=== PATIENT | male | born 1970 | race Caucasian/White ===

== ENCOUNTER 2020-12-15 08:20 | Emergency (ER) | payer OTHER ==
[~2020-12-15] VITALS: Ht 175.3 cm; Wt 77.9 kg
[~2020-12-15 08:20] MED LIST: LORA0.5T21 PO
[2020-12-15 08:43] VITALS: BP 130/84
--- NOTE | 2020-12-15 08:58 | PHYS DOC ---
Past History Additional Past Medical Histor: chronic back pain Past Surgical History: Other Additional Past Surgical Histo: back Alcohol Use: None Adult General Chief Complaint Chief Complaint: LACERATION/AVULSION [facility] HPI Patient is a 50-year-old male presenting for laceration. Patient reports cutting household items with a knife and accidentally cutting left hand that was holding object he was trying to cut. Patient immediately placed a towel and applied pressure to said finger and was transported to our ER for evaluation. No other major changes in health, no changes in motor or sensory or neuro function, no blood thinner use, last tetanus is unknown Review of Systems Review of Systems Fourteen body systems of review of systems have been reviewed. See HPI for pertinent positives and negative responses, other aleman all other systems are negative, non-pertinent or non-contributory Allergies Allergies Allergies Coded Allergies Type Severity Reaction Last Updated Verified No Known Drug Allergies 10/01/14 No Physical Exam Physical Exam Constitutional: Well developed, well nourished, no acute distress, non-toxic appearance. HENT: Normocephalic, atraumatic, bilateral external ears normal, oropharynx moist, no oral exudates, nose normal. Eyes: PERRLA, EOMI, conjunctiva normal, no discharge. Neck: Normal range of motion, no tenderness, supple, no stridor. Cardiovascular: Heart rate regular, sinus rhythm, no murmurs rubs or gallops Lungs & Thorax: Bilateral breath sounds clear to auscultation Abdomen: Bowel sounds normal, soft, no tenderness, no masses, no pulsatile masses. Nonsurgical abdomen, no peritoneal signs Skin: Warm, dry, no erythema, no rash. Well approximated 4 mm laceration present to distal pad of left second index finger without nailbed involvement or underlying muscle/tendon involvement, no foreign bodies Back: No tenderness, no CVA tenderness. Extremities: No tenderness, no cyanosis, no clubbing, ROM intact, no edema. Neurologic: Alert and oriented X 3, medial radial and ulnar nerves of left upper extremity intact, normal motor & sensory function, no focal deficits noted. Psychologic: Affect normal, judgement normal, mood normal. Current Patient Data Vital Signs Vital Signs Date Time Temp Pulse Resp B/P (MAP) Pulse Ox O2 Delivery O2 Flow Rate FiO2 12/15/20 08:43 97.8 92 18 130/84 97 Room Air EKG EKG [] Radiology/Procedures Radiology/Procedures [] Heart Score C/O Chest Pain: No Risk Factors: Risk Factors: DM, Current or recent (<one month) smoker, HTN, HLP, family history of CAD, obesity. Risk Scores: Risk Factors: DM, Current or recent (<one month) smoker, HTN, HLP, family history of CAD, obesity. Course & Med Decision Making Course & Med Decision Making ABCs unremarkable. I disclosed entirety of ER findings and discussed most likely diagnosis of left second fingertip laceration, uncomplicated in nature. Other diagnoses were discussed with patient such as tuft fracture versus other complicated laceration but all deemed less likely causes of patient's presentation. Tetanus updated. Plan of care discussed at length with need for close outpatient follow-up to review today's ER visit stressed. Strict return precautions were also discussed at length with good understanding verbalized by patient. Patient voiced understanding and agreement with the plan. Patient knows to come back for repeat evaluation if concerning signs or symptoms present prior to outpatient follow-up. Hemodynamically stable, ambulatory and well- appearing at time of disposition. Dragon Disclaimer Dragon Disclaimer This electronic medical record was generated, in whole or in part, using a voice recognition dictation system. Laceration Repair Lac Repair Indication: Left fingertip laceration Procedure: Patient was put in appropriate position and copious amounts of water was used to cleanse area. Alcohol prep pads were used around well approximated 4 mm cut. Area was explored with no obvious foreign bodies or other concerning findings such as muscle or tendon involvement. Bleeding well controlled. Joint decision to defer sutures and pursue Dermabond application. This was applied without issue with good skin wound closure. Appropriate dressing and finger splint placed prior to ER departure Total repaired wound length: 4 mm. Other Items: Dermabond The patient tolerated the procedure well without any reported nor observed complications. Complications: None. Departure Departure: Impression: Primary Impression: Laceration of finger of left hand Disposition: HOME / SELF CARE / HOMELESS Condition: STABLE Referrals: MOSHE KHOURY MD (PCP) Patient Instructions: Fingertip Laceration, Laceration Care, Adult Additional Instructions: You were seen for a laceration. Keep the area clean and dry for upcoming 48 hours. Return to the ED immediately if you develop any signs of infection like increased pain, redness, fever, or purulent (pus) drainage. Do not take baths, submerge the wound, or use a hot tub until your finger wound has fully healed JOSE ELIAS PARRY DO Dec 15, 2020 08:58
[2020-12-15] MEDS ORDERED: DIPH,PERTUSS(ACELL),TET VAC/PF 0.5 ML SYRINGE. VAX IM ONE ×2 (09:24→09:30)
== END 2020-12-15 09:41 | disposition home or self-care (01) ==
LOC: ER 08:27
DX: S61.211A Laceration without foreign body of left index finger without damage to nail, initial encounter (principal); W26.0XXA Contact with knife, initial encounter; Y93.89 Activity, other specified; Y92.89 Other specified places as the place of occurrence of the external cause; Y99.8 Other external cause status
CPT/HCPCS: 12001; 90471; 90715; 99283-25